=== PATIENT | male | born 1940 | race Caucasian/White ===

== ENCOUNTER 2016-12-25 04:49 | Inpatient (IN) | payer MEDICARE, BC ==
[2016-12-20 15:24] LABS: BASOPHILS 0.3 %; BASOPHILS ABSOLUTE 0.02 10/3/uL (0.0-0.16); EOSINOPHILS 1.1 %; EOSINOPHILS ABSOLUTE 0.07 10/3/uL (0.0-0.53); HEMATOCRIT 41.6 % (40.0-51.0); IMMATURE GRANULOCYTES 0.2 %; IMMATURE GRANULOCYTES ABSOLUTE 0.01 10/3/uL (0.0-0.11); LYMPHOCYTES 21.8 %; LYMPHOCYTES ABSOLUTE 1.38 10/3/uL (0.67-4.30); MEAN CORPUS HGB CONC 33.7 g/dL (32.0-36.0); MEAN CORPUSCULAR HEMOGLOB 29.2 pg (26.0-34.0); MEAN CORPUSCULAR VOLUME 86.7 fL (80-100); MEAN PLATELET VOLUME 10.7 fL (9.2-13.0); MONOCYTES 6.3 %; NEUTROPHILS 70.3 %; NEUTROPHILS ABSOLUTE 4.44 10/3/uL (2.02-8.40); PLATELET COUNT 127 10/3/uL (150-400); RBC DISTRIBUTION WIDTH 16.1 % (12.0-16.0); WHITE BLOOD CELLS 6.3 10/3/uL (4.5-10.5)
[2016-12-20 15:26] LABS: MANUAL DIFF NO %
[2016-12-20 15:31] LABS: INTERNATIONAL NORMAL RATI 1.1 UNITS (-); PROTIME (NOT ORD) 14.1 SEC (12.0-14.5)
[2016-12-20 15:41] LABS: B NATRIURETIC PEPTIDE (BNP) 475.8 PG/ML (< 100.0)
[2016-12-20 15:42] LABS: A/G RATIO 1.1 (0.7-1.9); ALBUMIN 3.6 G/DL (3.5-5.0); ALKALINE PHOSPHATASE 79 U/L (45-117); CALCIUM, SERUM 9.1 MG/DL (8.5-10.4); CHLORIDE, SERUM 108 MMOL/L (96-112); CO2 (CARBON DIOXIDE) 28 MMOL/L (24-34); CREATININE 1.24 MG/DL (0.70-1.30); GFR AFRICAN AMERICAN 64 ML/MIN (>=60); GFR NON AFRICAN AMERICAN 55 ML/MIN (>=60); GLOBULIN 3.2 G/DL (2.5-4.1); POTASSIUM, SERUM 4.6 MMOL/L (3.5-5.3); SGOT(AST) 32 U/L (5-40); SGPT(ALT) 29 U/L (5-65); SODIUM, SERUM 141 MMOL/L (135-148); TOTAL BILIRUBIN 1.6 MG/DL (0-1.2); TOTAL PROTEIN 6.8 G/DL (6.0-8.5)
[2016-12-20 15:43] LABS: BUN (BLOOD UREA NITROGEN) 32 MG/DL (6-23); GLUCOSE, SERUM 150 MG/DL (60-99)
[2016-12-20 16:01] LABS: ASCORBIC ACID (UR NOT ORDER) NEG (NEG); BILIRUBIN, URINE NEGATIVE (NEG); KETONE, URINE NEGATIVE (NEG); LEUKOCYTE ESTERASE(NOT OR NEG (NEG); WBC (NOT ORDERED) (RFLEX) < 1 (0-5)
[2016-12-20 21:29] LABS: GLYCOHEMOGLOBIN (HbA1c) 7.1 % (4.7-6.1)
--- NOTE | ~2016-12-25 | OP ---
Record Of Operation [facility] [address] [place]. [address] NAME: JHON HODGSON : 38 STATUS : ADM IN LOCATED WITHIN [facility]#: [id number] AGE: 76 ADM/REG DATE : 12/25/16 MR#: [id number] REPORT SERV DATE: 12/28/16 DICTATED BY: VELIA CROSS DATE: 12/28/16 REPORT STATUS : Draft TRANSCRIBED BY: MODL DATE: 12/28/16 DATE OF PROCEDURE: 12/28/2016 PREOPERATIVE DIAGNOSES: 1. 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 2. 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 3. Coronary artery disease. 4. Bhpld-ag-bjmmntn systolic heart failure (ejection fraction 30%). 5. Plavix-induced coagulopathy. 6. Status post recent TAVR with CoreValve (12/25/2016). 7. Diabetes mellitus. 8. Chronic kidney disease. 9. History of ventricular tachycardia status post AICD implantation. 10.Cerebrovascular disease. POSTOPERATIVE DIAGNOSES: 1. 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 2. 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 3. Coronary artery disease. 4. Nvspn-qq-tabtfdz systolic heart failure (ejection fraction 30%). 5. Plavix-induced coagulopathy. 6. Status post recent TAVR with CoreValve (12/25/2016). 7. Diabetes mellitus. 8. Chronic kidney disease. 9. History of ventricular tachycardia status post AICD implantation. 10.Cerebrovascular disease. PROCEDURE PERFORMED: 1. Urgent replacement of aortic valve using a 27 mm pericardial valve (Magna Ease). 2. Coronary artery bypass grafting x3, reverse saphenous vein graft placed to the first diagonal, reverse saphenous vein graft placed to the acute marginal, reverse saphenous vein graft placed to the posterior descending artery. 3. Extraction of prosthetic aortic valve (CoreValve). 4. Endoscopic vein harvest, saphenous vein from right thigh. 5. Transesophageal echocardiography. SURGEON: Velia Cross M.D. ASSISTANTS: Dario Rosales. ANESTHESIA: General with Dr. Juan Carlos Salinas. SIGN PAINTER APPRENTICE: Drew Daniel M.D. INDICATIONS: This is a 76-year-old gentleman, with low gradient, low EF, aortic valve stenosis, who underwent uncomplicated TAVR valve procedure on 12/25/2016 using a 29 mm Record Of Operation [place] [id number] [facility] [place]. [address] NAME: JHON HODGSON : 38 STATUS : ADM IN PAT#: [id number] AGE: 76 ADM/REG DATE : 12/25/16 MR#: [id number] REPORT SERV DATE: 12/28/16 DICTATED BY: VELIA CROSS DATE: 12/28/16 REPORT STATUS : Draft TRANSCRIBED BY: URIEL DATE: 12/28/16 CoreValve. Following implantation, the patient was doing well. Had mild increase in his creatinine. He underwent routine postoperative echo the day after procedure demonstrating possible aortic valve insufficiency that was not seen at the time of surgery. In addition, it appeared that the CoreValve itself had been migrated into the ventricular portion with impingement on the anterior leaf of the mitral valve running full opening of the mitral valve and causing effective mitral valve stenosis. The patient underwent a followup JOSIAS later that confirmed these findings and the fact the patient was found to have severe aortic valve insufficiency. His ventricular function was noted to be low with ejection fraction 30%, felt to be chronic and ischemic related. He has had previous stents placed in multiple coronary arteries. The implanting members of the TAVR team met and discussed his case and felt the patient should undergo emergent re-replacement of this prosthetic aortic valve. He was felt and I agreed that the patient should have surgical aortic valve replacement rather than attempted percutaneous repositioning of the CoreValve and/or implantation of a 2nd core valve device. The patient has a history of coronary artery disease. I reviewed the heart catheterization and felt this patient undergo bypass of the diagonal and right coronary system for previous stenosis. The patient has a stent in the LAD, which appears patent. We discussed there was nonsurgically critical coronary disease in the circumflex system. We discussed this possible operation with the patient's family and after discussing the operations, indication, risks, they wished to proceed. The patient was on Plavix postprocedure and was felt to be coagulopathic, however, continued observation and allowing the Plavix for metabolism would lengthen amount of time the patient had significant aortic insufficiency. There was concern that his ventricular function would further be compromised during this wait and it was agreed that the patient should undergo urgent aortic valve replacement surgically. FINDINGS AT OPERATION: 1. Cross-clamp 106 minutes. Total pump time 129 minutes. 2. First diagonal was 1.75 mm moderately diseased vessel. A 4 mm RSVG was anastomosed to it with good runoff. 3. Posterior descending artery was 1.5 mm and heavily diseased. A 4 mm RSVG anastomosed to it with good runoff. 4. The acute marginal branch is 1.75 mm and moderately diseased. A 4 mm RSVG was anastomosed to it with good runoff. 5. The vein quality was good. All grafts had good Doppler signal at the end of the case. 6. No DORI was utilized secondary to the patient's lack of the LAD disease at this time, and the fact that he was significantly coagulopathic. 7. The CoreValve had been displaced. This was seen on opening of the aorta and the fact the CoreValve had migrated further into the left ventricle with impingement and restricted motion of the anterior leaf of the mitral valve. Some of the cords in the mitral valve actually had some stress hemorrhagic injury secondary to the struts of the CoreValve. The valve was removed easily from the ascending aorta and left ventricle. 8. The [place] aortic valve was three leaflet with normal coronary anatomy and no root dilatation. The patient had a short left main coronary artery. The valve leaflets were heavily calcified and there was a fused right and left coronary cusp. The aortic valve was replaced using a 27 mm Magna Ease pericardial valve. Eighteen Cor-Knots were used to secure the valve in place. 9. The patient was oozy at the end of the procedure. He had been on Plavix. He was given Record Of Operation [address] [address] NAME: JHON HODGSON : 38 STATUS : ADM IN PAT#: [id number] AGE: 76 ADM/REG DATE : 12/25/16 MR#: [id number] REPORT SERV DATE: 12/28/16 DICTATED BY: VELIA CROSS DATE: 12/28/16 REPORT STATUS : Draft TRANSCRIBED BY: MODL DATE: 12/28/16 platelets, cryoprecipitate and FFP. 10.Josias at the end of the operation demonstrated continued reduced ventricular function. There was no residual mitral valve insufficiency or stenosis. Aortic prosthesis was well seated without perivalvular leak. PATHOLOGIC SPECIMENS: Include the aortic valve leaflets and the CoreValve. DESCRIPTION OF PROCEDURE: The patient was brought to the operating suite. General anesthesia was induced. The airway was secured with an endotracheal tube. Lines were secured by Anesthesia. Ascencio catheter was already in place. The patient's chest, abdomen, groin, and legs were prepped with Hibiclens and ChloraPrep and draped with Ioban sterile sheets. JOSIAS probe was placed by Dr. Juan Carlos Salinas and examination carried out as discussed above. The patient had significant restriction of the motion of the anterior leaflet of the mitral valve with the ventricular displacement of the CoreValve and severe perivalvular insufficiency. Ventricular function was reduced. The saphenous vein was harvested from the right thigh using endoscopic technique. Briefly, the vein was cut directly down upon through a 2 cm incision placed medial aspect of the right knee. Then, using VasoView trocars, the vessel was dissected from the surrounding subcutaneous tissue and fat. Side branches were identified, ligated, and divided with cautery. Once adequate length of vein had been dissected, a counter incision made up in the groin. The vein was ligated, divided, and brought through the knee incision. The vein quality was good. The leg was made hemostatic and closed in layers with absorbable suture and skin closed in subcuticular fashion. Next, a midline sternal incision was made and the sternum opened with a saw. The Addison retractor was placed and heparin administered by Anesthesia. The pericardium was opened from the innominate vein to the diaphragm, where it was T'd and tacked to the side of the chest wall. Cannulation pursestring sutures were placed and cannulation was carried out in routine manner. When all was in readiness, the patient was placed on cardiopulmonary bypass. The distal targets were marked out on the heart as described in the findings. Then, the aorta was crossclamped. Initially, an only dose of cold crystalloid cardioplegia using long term solution was administered in an antegrade fashion and directly down the coronary vessels once the aorta was opened. An LV vent was placed in through the right superior pulmonary vein and directed into the left ventricle for decompression. Because of the patient's severe aortic insufficiency, we opened the aorta earlier than usual on this initial antegrade cardioplegia dose. The CoreValve itself has been displaced in down toward or into the left ventricle. The right and left main coronary arteries were visible but were difficult to get to secondary to the CoreValve struts of the stent. Iced saline was then placed on the CoreValve metal and the valve was extracted from the aortic root. We then gave the remaining dose of long term solution down the coronary vessels directly. Following the first dose of cardioplegia, the heart support was placed. The heart was then Record Of Operation [address] [place]. [address] NAME: JHON HODGSON : 38 STATUS : ADM IN PAT#: [id number] AGE: 76 ADM/REG DATE : 12/25/16 MR#: [id number] REPORT SERV DATE: 12/28/16 DICTATED BY: VELIA CROSS DATE: 12/28/16 REPORT STATUS : Draft TRANSCRIBED BY: URIEL DATE: 12/28/16 positioned for the diagonal graft. Arteriotomy was made. The vein graft was trimmed and anastomosed to it with 7-0 Prolene. This vein graft was measured to the left side of the ascending aorta where it was divided. We then positioned the heart for the PDA graft. Arteriotomy was made. The vein graft was trimmed and anastomosed to it with 7-0 Prolene. This vein graft was then measured to the right side of the ascending aorta where it was divided. We then positioned the heart for the acute marginal graft. Arteriotomy was made. The remaining portion of vein graft was trimmed and anastomosed to it with 7-0 Prolene. This vein graft was then measured to the ascending aorta where it was divided. Then, a heart support was removed. We then turned our attention towards the aortic valve. A hockey-stick type aortotomy incision made earlier was enlarged. The aortic valve was inspected and as described in the findings, he had three leaflets that were heavily calcified. There was fusion of the right and left coronary cusp. Coronary anatomy was normal. There was no root dilatation. The aortic valve leaflets were excised and the annulus debrided of all calcific material. We then irrigated the ascending aorta and left ventricle copiously with iced saline to remove any particulate matter. Then, the valve was sized and a 27 mm pericardial valve was selected (Magna Ease). Interrupted horizontal mattress sutures of 2-0 [place] were placed circumferentially about the aortic valve annulus. Pledgets were on the ventricular side. The sutures were passed through the sewing cuff of the prosthetic valve. This was lowered into position each sutures individually secured and divided using a Cor-Knot device. A total of 18 Cor-Knots were utilized. The aortic valve prosthesis appeared to be well seated and without interference of the right or left main coronary ostia. Warming was begun. The aortotomy incision was then closed in a two-layer fashion with running pledgeted suture of 5-0 Prolene. Then three 4.5 mm punch aortotomies were made. The proximal end of each vein grafts was anastomosed to an aortotomy with a running suture of 6-0 Prolene. The patient was placed in Trendelenburg and ascending aorta and left ventricle de-aired. Then, the aortic cross-clamp was removed. Flows were resumed on the pump. The heart was allowed to rest on cardiopulmonary bypass. A paced rhythm did occur. When the heart demonstrated good contractility, it was allowed to fill and eject. Inotropic agents were begun by Anesthesia. Ventilations were begun and deairing was monitored with JOSIAS. When deairing was completed, the LV vent was removed and these pursestring sutures tied. The ascending aortic vent was likewise removed and these pursestring sutures tied and reinforced. The patient was weaned from cardiopulmonary bypass with inotropic support. The venous cannulas were removed and these pursestring sutures tied. JOSIAS examination demonstrated continued reduced ventricular function with some improvement. The aortic valve prosthesis was well seated without perivalvular leak. There was no mitral insufficiency, and there was good opening of the anterior leaflet of the mitral valve postoperatively. Protamine was administered by Anesthesia and following a period of hemodynamic stability, the aortic cannula was removed and these pursestring sutures tied and reinforced. Record Of Operation [facility] [address] [facility] [place]. [address] NAME: JHON HODGSON : 38 STATUS : ADM IN PAT#: [id number] AGE: 76 ADM/REG DATE : 12/25/16 MR#: [id number] REPORT SERV DATE: 12/28/16 DICTATED BY: VELIA CROSS DATE: 12/28/16 REPORT STATUS : Draft TRANSCRIBED BY: MODL DATE: 12/28/16 The patient continued do well and chest irrigated copiously with saline. Meticulous hemostasis was obtained. The patient was coagulopathic and oozing, and FFP, platelets, and cryoprecipitate were ordered from the blood bank. As hemostasis was assured, the pericardium was draped over the anterior surface of the heart and tacked into position. Doppler demonstrated good flow through the grafts following protamine administration. Then, chest tubes were placed in the sternum and reapproximated with eight sternal wires. The clavipectoral fascia was closed with #1 Stratafix. The subcutaneous tissue was closed and skin was closed in subcuticular fashion. The patient tolerated the procedure well. There were no complications. Sponge and needle counts were correct. DISPOSITION: The patient left intubated, sedated, and transported to the intensive care unit in a stable condition. NICK/URIEL Velia Cross M.D. / [id number] CC: Lauren Fernando M.D. Brian Negus, M.D.
--- NOTE | ~2016-12-25 | CN ---
Consultation Report [facility] [address] [place]. [address] NAME: JHON HODGSON : 38 STATUS : ADM IN PAT#: [id number] AGE: 76 ADM/REG DATE : 12/25/16 MR#: [id number] REPORT SERV DATE: 12/29/16 DICTATED BY: VELIA ROWLEY DATE: 12/29/16 REPORT STATUS : Draft TRANSCRIBED BY: MODL DATE: 12/29/16 CONSULTATION DATE OF CONSULTATION: REASON FOR CONSULTATION: Diabetes management. PHYSICIAN REQUESTING CONSULTATION: Dr. Cross. HISTORY OF PRESENT ILLNESS: Mr. Hodgson is a 76-year-old gentleman with a history of very labile insulin-dependent diabetes mellitus type 2 with recent hemoglobin A1c of 7.8. The patient is postop day #4 from transcatheter aortic valve replacement that was unfortunately complicated by valve replacement malposition with acute aortic insufficiency and acute mitral stenosis requiring bioprosthetic aortic valve replacement as well as coronary artery bypass grafting on 12/28/2016. The patient has been extubated for approximately 24 hours. He is now currently eating at least 50% of his meals of last three meals, so the Hospitalist Service has now been consulted for assistance with weaning the patient from his insulin drip. The patient states that he has not seen an campground hand, but he is scheduled to see one later this month at [facility], name unknown. His last hemoglobin A1c was approximately 7.8. The patient is on a very unusual insulin regimen at home. The patient states that he typically takes about 50 units of Novolin N in the morning if his sugars greater than 150. If it is less than 150, he will then adjust that dose by himself but does not have a set scale or correction amount. The patient also will give himself 1-2 units of Novolin R if his sugars in the morning check are very high such as greater than 250 or 300. The patient also will check his sugar at lunch time, and if greater than 150, and if he anticipates a high carb intake for lunch, he will be given something in between 0 to 2 units of Novolin R. The patient also will check his sugars at dinner, and again based on blood sugar check as well as his carb intake, may give himself between 0 to 2 units of Novolin R. The patient then checks his blood sugar at night, and if less than 200, he will need to take an additional carbs at night to prevent him from going hypoglycemic late at night. If his sugars are greater than 200 at night, he does not take any additional carbs but never at any time does he give himself additional insulin as he has frequent episodes of hypoglycemia late at night or early in the morning. The patient states he was recently on metformin but discontinued about three weeks ago for persistently low blood sugars. The patient reports that he has been trialed on multiple regimens and types of insulin without significant improvement in his labile blood sugars. Hence, Endocrinology referral. The patient does have a history of temporal arteritis and has been on chronic prednisone therapy, and of note, his sewer and drain technician recently decreased from 5 mg per day to 2.5 mg a day about one month ago. Hemoglobin A1c was checked here in the ICU and is currently 6.8. The patient is currently on insulin drip at 6 units/hour. He has consumed approximately 24 units in the last six hours as well as about 34 units in the last 8 hours. He states he is Consultation Report [address] [address] NAME: JHON HODGSON : 38 STATUS : ADM IN [facility]#: [id number] AGE: 76 ADM/REG DATE : 12/25/16 MR#: [id number] REPORT SERV DATE: 12/29/16 DICTATED BY: VELIA ROWLEY DATE: 12/29/16 REPORT STATUS : Draft TRANSCRIBED BY: URIEL DATE: 12/29/16 eating about 50% of his meals over the last day. Denies any abdominal pain, nausea, vomiting that prevent from eating meals in the future. Of note, he has had some episodes of low blood sugar of 67 a few hours ago as well as an episode of closure of 47 while on the insulin drip yesterday. REVIEW OF SYSTEMS: Comprehensive system otherwise negative unless listed in history of present illness. PREVIOUS MEDICAL HISTORY: 1. Coronary artery disease, status post PCI and recent coronary artery bypass grafting. 2. Aortic stenosis, status post transcatheter aortic valve replacement that had to be converted to a bioprosthetic aortic valve replacement. 3. Insulin-dependent diabetes mellitus type 2. Hemoglobin A1c of 6.8. 4. Hypertension. 5. Hyperlipidemia. 6. Chronic systolic congestive heart failure. Ejection fraction of 30%. 7. Carotid arterial disease. 8. CKD 2. 9. BPH. 10.Restless legs syndrome. 11.Temporal arteritis, on chronic prednisone therapy. 12.Obstructive sleep apnea. 13.Status post pacemaker ICD insertion. SURGICAL HISTORY: 1. TURP. 2. CABG. 3. Transcatheter aortic valve replacement, 12/25/2016. 4. Bioprosthetic aortic valve replacement for TAVR malposition on 12/28/2016. 5. Coronary artery bypass grafting, 12/28/2016. 6. Pacemaker ICD insertion. 7. Hernia repair. 8. Appendectomy. 9. Cataract surgery. ALLERGIES: ARE TO PHENERGAN. HOME MEDICATIONS: The patient is currently on prednisone 2.5 mg daily as well as NPH 50 units daily as well as a carbohydrate control insulin scale. SOCIAL HISTORY: He is a former smoker. Denies alcohol or illicits. FAMILY MEDICAL HISTORY: Mother of old age in her upper 90s. Father with coronary artery disease. Siblings with diabetes. Consultation Report [address] [address] NAME: JHON HODGSON : 38 STATUS : ADM IN [facility]#: [id number] AGE: 76 ADM/REG DATE : 12/25/16 MR#: [id number] REPORT SERV DATE: 12/29/16 DICTATED BY: VELIA ROWLEY DATE: 12/29/16 REPORT STATUS : Draft TRANSCRIBED BY: URIEL DATE: 12/29/16 LABS AND IMAGIN. Review of the patient's most recent blood sugars are 136 and then 99, then 67, then 133, then 201. Currently on a 6 unit/hour insulin drip. 2. CBC: White count 7.8, hemoglobin is 8.9, hematocrit is 25.6, and platelet count is 114. 3. Sodium is 143, potassium 4.4, chloride 111, carbon dioxide 24, BUN 29, creatinine 1.1, and glucose is 102. PHYSICAL EXAMINATION: VITAL SIGNS: Temperature is 99.2 degrees Fahrenheit, pulse is 93, respirations 23, saturating 94% on 2 L nasal cannula, and blood pressure 130/65. GENERAL: The patient is awake, alert, in no acute distress. Resting comfortably in bed. He is a well-developed, well-nourished, elderly male. HEENT: Atraumatic and normocephalic. Moist mucous membranes. Pupils are equal, round, reactive to light and accommodation. Extraocular eye movements intact. No scleral icterus. NECK: No jugular venous distention. No carotid bruits. CARDIAC: Regular rate and rhythm. No appreciable murmurs, rubs, or gallops. Status post sternotomy with appropriate bandaging. LUNGS: Clear to auscultation bilaterally except for decreased breath sounds, left greater than right bases. ABDOMEN: Soft, nontender, nondistended. Good bowel sounds. ASSESSMENT: Mr. Hodgson is a 76-year-old gentleman with history of labile insulin-dependent diabetes mellitus type 2 who is postop day #1 from coronary artery bypass grafting as well as revision of his previous transcatheter aortic valve replacement with a bioprosthetic AVR who is currently on an insulin drip. PROBLEM LIST: Labile insulin-dependent diabetes mellitus type 2. PLAN: Given the patient's very labile diabetes at home as well as here on insulin drip, we are very concerned with my initial management in order to get the patient off insulin drip. He has consumed 24 units of insulin in the past six hours which would be quite about 100 units for the full 24 hours. However, again, given his labile blood sugars, I am going to initially place him on Levemir 15 units x1, wait an hour befor shutting off insulin drip. We will place him on level 1 insulin sliding scale and adjust as needed, and again, continue the Levemir insulin 15 units per day beginning in the morning, and we will up titrate as necessary. We will ask Nursing to contact us should patient become hyperglycemic as again I am choosing a very conservative approach in an effort to try to minimize the risks of hypoglycemia. Thank you for this consultation. We will continue to follow along with you. JCB/MODL Consultation Report [facility] [address] [place]. [address] NAME: JHON HODGSON : 38 STATUS : ADM IN [facility]#: [id number] AGE: 76 ADM/REG DATE : 12/25/16 MR#: [id number] REPORT SERV DATE: 12/29/16 DICTATED BY: VELIA ROWLEY DATE: 12/29/16 REPORT STATUS : Draft TRANSCRIBED BY: URIEL DATE: 12/29/16 Velia Rowley MD / [id number] CC: Lauren Fernando M.D.
--- NOTE | ~2016-12-25 | TEE ---
Transesophageal Echocardiogram [facility] [address] [place]. [address] NAME: JHON HODGSON : 38 STATUS : ADM IN PAT#: [id number] AGE: 76 ADM/REG DATE : 12/25/16 MR#: [id number] REPORT SERV DATE: 12/27/16 DICTATED BY: GALLO MITCHELL DATE: 12/27/16 REPORT STATUS : Draft TRANSCRIBED BY: MODL DATE: 12/27/16 PROCEDURE INDICATION: Aortic valve assessment. PROCEDURE TYPE: Elective transesophageal echocardiogram. DESCRIPTION: All questions were answered, and informed consent was obtained. Anesthesia administered sedation. Upon successful sedation, the transesophageal probe was inserted without complication. Salient echocardiographic windows were obtained, with particular attention to the prosthetic transcatheter aortic valve. The findings are detailed below. Upon completion of the study, the transesophageal probe was withdrawn without complication. The patient was recovered by Anesthesia. I updated the family personally. ECHOCARDIOGRAPHIC FINDINGS: 1. Moderately decreased left ventricular systolic function with an estimated ejection fraction of 35%. 2. Normal right ventricular size and systolic function. 3. Medtronic transcatheter CoreValve noted within the left ventricular outflow tract with a significant restriction of the anterior mitral leaflet systolic excursion due to Medtronic anterior struts within the LVOT. With 3D, color Doppler and spectral Doppler assessment, moderate functional mitral stenosis is suggested (mean gradient equals 6 mmHg). In addition, there appears to be severe perivalvular aortic regurgitation, predominantly medial and lateral in location. There is evidence of aortic diastolic flow reversal as well on color and spectral Doppler assessment in keeping with severe aortic regurgitation. Finally, measured pressure half-time with regard to the aortic regurgitation is 190 milliseconds, also in keeping with severe AR. 4. The transcatheter prosthetic aortic valve itself, however, appears to be functioning well with normal excursion of the prosthetic leaflets and no valvular regurgitation seen on color Doppler assessment. VR/MODL Gallo Mitchell MD / [id number] CC: Lauren Fernando M.D.
--- NOTE | ~2016-12-25 | CN ---
Consultation Report [facility] [address] [place]. [address] NAME: JHON HODGSON : 38 STATUS : ADM IN [facility]#: [id number] AGE: 76 ADM/REG DATE : 12/25/16 MR#: [id number] REPORT SERV DATE: 12/27/16 DICTATED BY: ALFRED PETERSEN DATE: 12/27/16 REPORT STATUS : Draft TRANSCRIBED BY: MODL DATE: 12/27/16 CONSULTATION NOTE DATE OF CONSULTATION: 12/27/2016 REQUESTING PHYSICIAN: Dr. Daniel. CONSULTING GROUP: [facility]. CHIEF COMPLAINT: Status post transcatheter aortic valve implantation postop day 2, bump in creatinine. HISTORY OF PRESENT ILLNESS: Mr. Hodgson is a 76-year-old gentleman with past medical history significant for coronary artery disease, AICD placement, carotid disease, diabetes, hypertension, transurethral prostatectomy 20 years ago, who was admitted for transcatheter aortic valve implantation by Dr. Daniel and Dr. Cross. According to chart and his outpatient records, he had a fixed severe low gradient aortic stenosis. His LV ejection fraction was 30%. The procedure was performed on 12/25/2016 and status post procedure he started having new symptoms of aortic regurgitation. He was having shortness of breath, so his discharge was held and he was not placed on any IV fluids or IV drips. He did require Lasix 40 mg IV q.8 hours x2, and an echocardiogram transesophageal has been scheduled for 3 p.m. today. He is a pleasant patient, good historian, in no acute distress at this time. He is n.p.o. for his transesophageal echocardiogram. His primary care physician is Dr. Zamzam Corey. PAST MEDICAL HISTORY: Carotid artery disease; CKD stage II, not seen by ornamenter; diabetes; hypertension; hyperlipidemia; transcatheter aortic valve implantation postop day 2; he has acute on chronic systolic heart failure and coronary artery disease. He also has a history of restless legs syndrome and prostate disease requiring transurethral prostatectomy 20 years ago. FAMILY HISTORY: Noncontributory. SOCIAL HISTORY: He is a 30-pack smoker. No alcohol or drug use. Lives with in [facility]. 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 REVIEW OF SYSTEMS: Positive for shortness of breath, prostate issues, and fatigue. All other review of systems negative at this time. PHYSICAL EXAMINATION: VITAL SIGNS: Temperature 98.5, pulse 79, blood pressure 120/60. Weight 73.2 kg. Intake 940, output 2850. 96% O2 saturation on room air. GENERAL: He looks younger than stated age, in no acute distress. Consultation Report [facility] [address] [place]. [address] NAME: JHON HODGSON : 38 STATUS : ADM IN [facility]#: [id number] AGE: 76 ADM/REG DATE : 12/25/16 MR#: [id number] REPORT SERV DATE: 12/27/16 DICTATED BY: ALFRED PETERSEN DATE: 12/27/16 REPORT STATUS : Draft TRANSCRIBED BY: URIEL DATE: 12/27/16 EYES: Extraocular movements are intact. No conjunctivitis. ENT: Dry oropharynx. No facial droop. LYMPH: No supraclavicular or cervical lymphadenopathy. SKIN: No rash or lesions. HEART: S1, S2 regular. No faint murmur. No edema. LUNGS: Clear to auscultation anteriorly. No crackles. No tachypnea. ABDOMEN: Soft, thin. Decreased bowel sounds. EXTREMITIES AND PSYCH: Alert and oriented x3. Normal mood and affect. LABS: Chest x-ray shows status post transcatheter aortic valve implantation, interstitial edema, and small left pleural effusion. ABG performed recently pH of 7.54, pCO2 of 28, PO2 of 77, bicarbonate 23.4, 95.8% O2 saturation on FiO2 room air. Sodium 139, potassium 4.2, chloride 103, bicarbonate 27, BUN 31, creatinine 1.43, and glucose 197. Calcium 8.9, magnesium 2.0. His creatinine has bumped from 0.92 to 1.0 to 1.43. White count 9.7, hemoglobin 13.8, hematocrit 40.3, and platelets 98. ASSESSMENT AND PLAN: Mr. Hodgson is a 76-year-old gentleman with severe aortic stenosis, coronary artery disease, diabetes, hypertension, carotid disease, chronic kidney disease stage II to stage III, postop day 2 transcatheter aortic valve implantation with adverse reaction of migration of the new valve. Renal. Creatinine has gone up from 0.9 to 1.0 to 1.43. PLAN: 1. He did respond to Lasix x2 doses yesterday, but the bump in creatinine has been noted. His urine output was 2850 mL. 2. He is scheduled for transesophageal echocardiogram today at 3 p.m. to assess migration of this new valve. 3. Encouraged p.o. once MIRIAM is completed. He has good urine output. 4. The patient is slated to go home, if the MIRIAM and his symptomatology are stable. 5. I spoke with SLOT TECHNICIAN to call me with any new concerns such as oliguria or worsening shortness of breath. I have ordered spot urine test tonight if he stays overnight. RG/MODL Alfred Petersen M.D. / [id number] CC: Lauren Fernando M.D.
--- NOTE | ~2016-12-25 | OP ---
Record Of Operation [facility] [address] [place]. [address] NAME: JHON HODGSON : 38 STATUS : ADM IN PAT#: [id number] AGE: 76 ADM/REG DATE : 12/25/16 MR#: [id number] REPORT SERV DATE: 12/25/16 DICTATED BY: EZEQUIEL FOLEY DATE: 12/25/16 REPORT STATUS : Draft TRANSCRIBED BY: MODL DATE: 12/25/16 DATE OF PROCEDURE: 12/25/2016 REFERRING DREDGING INSPECTOR: Francisco Diaz M.D. PROCEDURE PERFORMED: 1. Transcatheter aortic valve implantation using a Medtronic 34 mm Evolut R valve from a right transfemoral approach. 2. Temporary transvenous pacemaker placement, right IJ to right ventricle. 3. Ascending aortogram. 4. Iliac angiogram. 5. ProGlide closure x2, right femoral artery successful. 6. ProGlide closure x1, left femoral artery successful. COVER MARKER: Dario Rosales. ECHOCARDIOGRAPHY: Mich Martinez M.D., Ph.D, F.A.C.C. ANESTHESIA: MAC and local. SPECIMEN REMOVED: None. FLUOROSCOPY TIME: 22.1 minutes, mGy 446. ESTIMATED BLOOD LOSS: Less than 50 mL. CONTRAST: 60 mL, nonionic. COMPLICATIONS: None. PREOPERATIVE DIAGNOSES: 1. Severe low-gradient aortic stenosis by dobutamine echocardiography with fixed severe aortic stenosis with aortic valve area of 0.9 sq cm. Peak gradient of 17, mean gradient of 16 mmHg. 2. Acute on chronic systolic congestive heart failure. 3. Left ventricular ejection fraction of 30% by echocardiography. 4. Increased surgical risk with STS score of 6.7% mortality and 29.8% morbidity and mortality. He was seen by two cardiac surgeons, Dr. Perla and Dr. Cross, who felt that he was at high surgical risk. 5. Status post ICD placement for ventricular tachycardia. 6. Coronary artery disease, status post percutaneous intervention. 7. Carotid artery disease grade 2 bilaterally, asymptomatic. 8. Chronic kidney disease, stage 3. 9. Diabetes mellitus. 10.Hypertension. 11.Elevated cholesterol. Record Of Operation [facility] [address] [place]. [address] NAME: JHON HODGSON : 38 STATUS : ADM IN PAT#: [id number] AGE: 76 ADM/REG DATE : 12/25/16 MR#: [id number] REPORT SERV DATE: 12/25/16 DICTATED BY: EZEQUIEL FOLEY DATE: 12/25/16 REPORT STATUS : Draft TRANSCRIBED BY: UREIL DATE: 12/25/16 12.Former tobacco. 13.Temporal arteritis, on high-dose steroid therapy. POSTOPERATIVE DIAGNOSES: 1. Severe low-gradient aortic stenosis by dobutamine echocardiography with fixed severe aortic stenosis with aortic valve area of 0.9 sq cm. Peak gradient of 17, mean gradient of 16 mmHg. 2. Acute on chronic systolic congestive heart failure. 3. Left ventricular ejection fraction of 30% by echocardiography. 4. Increased surgical risk with STS score of 6.7% mortality and 29.8% morbidity and mortality. He was seen by two cardiac surgeons, Dr. Perla and Dr. Cross, who felt that he was at high surgical risk. 5. Status post ICD placement for ventricular tachycardia. 6. Coronary artery disease, status post percutaneous intervention. 7. Carotid artery disease grade 2 bilaterally, asymptomatic. 8. Chronic kidney disease, stage 3. 9. Diabetes mellitus. 10.Hypertension. 11.Elevated cholesterol. 12.Former tobacco. 13.Temporal arteritis, on high-dose steroid therapy. 14.Only mild perivalvular aortic insufficiency postoperatively with a transthoracic echo. DATA FOR THE STS/ACC REGISTRY: Time of valve deployment 0905 hours. Preprocedure: Mean gradient of 17, peak gradient of 18. Cardiac output of 4.2 L/minute for an aortic valve area of 0.9 sq cm. Postprocedure: Mean gradient of 0, peak gradient of 0, cardiac output of 5.4 L/minute. Aortic valve area was not calculated due to lack of gradient. AI index of 36. INDICATION FOR PROCEDURE: Mr. Hodgson is a very pleasant 76-year-old white man with severe low-gradient aortic stenosis. He has been undergoing evaluation in the [facility] and had dobutamine echocardiography revealing fixed severe low-gradient aortic stenosis. He has comorbidities including acute on chronic systolic congestive heart failure with LVEF of 30%. VT status post ICD placement, coronary artery disease status post percutaneous intervention. His STS score was 6.7% mortality and 29.8% morbidity and mortality. He was seen by two cardiac surgeons, Dr. Cross and Dr. Perla, who felt that he was at high open surgical risk. He was offered transcatheter aortic valve implantation. After discussion of the risks, benefits, complications, and his alternatives including medical therapy and open aortic valve replacement, Mr. Hodgson wished to proceed with transcatheter aortic valve implantation, and informed written consent was signed. TECHNIQUE: After informed written consent, Mr. Hodgson was brought to the hybrid suite on the morning of 12/25/2016 in the fasting state. The time-out was performed and correct patient and operative plan were confirmed. MAC and local anesthesia was provided by the Anesthesia Service. There was an introducer already in the IJ provided by Anesthesia with a temporary transvenous pacemaker in the sheaths. This was advanced under fluoroscopic guidance to the RV position. Threshold was checked, which was less than 0.8 milliamps. This was then set Record Of Operation [address] [address] NAME: JHON HODGSON : 38 STATUS : ADM IN [facility]#: [id number] AGE: 76 ADM/REG DATE : 12/25/16 MR#: [id number] REPORT SERV DATE: 12/25/16 DICTATED BY: EZEQUIEL FOLEY DATE: 12/25/16 REPORT STATUS : Draft TRANSCRIBED BY: URIEL DATE: 12/25/16 aside. Next, local anesthesia in both groins was accomplished using 1% lidocaine. Using a modified Seldinger technique and a micropuncture set, a micro sheath was placed in the right and left femoral arteries and femoral angiograms were performed, which demonstrated good sticks in the common femoral artery, thought suitable for closure. The sheath was then exchanged for 6-Czech sheath, which double flushed and left in place. Next, a 5-Czech pigtail catheter was advanced over a flexible J-guidewire to the central aorta under fluoroscopic guidance. Guidewire was then withdrawn, catheter double flushed, pressure recording was obtained, angles were obtained, and angiography was performed, which was stored. Next, the ProGlide closures were placed in the right femoral artery at 10 o'clock and 2 o'clock in the usual fashion. The sheath was exchanged for a 16-Czech Cook sheath, which was double flushed and left in place. Next, a 6-Czech AL1 diagnostic catheter was advanced to the ascending aorta under fluoroscopic guidance. The patient was heparinized to an ACT of greater than 250. Using a straight guidewire, the aortic valve was crossed. The catheter was then advanced to the LV position using an exchange J-guidewire. The catheter was exchanged for a pigtail catheter and simultaneous LV and aortic pressures were then obtained. Cardiac output was performed. The Lunderquist double-curve wire was then placed in the LV and the catheter was withdrawn. Next, the Medtronic valve Evolut R absolute are 34 mm was brought to the table and cineangiography was performed, which demonstrated good paddle position and the valve was prepped and readied for implantation. Next, the sheath was withdrawn and the Medtronic valve with the in-line sheath was advanced through the right femoral artery. The valve was then advanced around the aortic arch in the HUNGARIAN projection and then brought to the ascending aorta. Valve angles were then obtained. The valve then crossed the aortic valve and position was confirmed angiographically. The angles were adjusted to get rid of the parallax and valve deployment was commenced in the usual fashion. Pacing was performed at a rate of 110 beats per minute during deployment. The valve needed to be recaptured on one occasion and the second deployment went well with good implantation depth estimated at 3-4 mm. The valve was functioning well. The patient remained hemodynamically stable. The valve was then released and followup angiography confirmed no significant aortic insufficiency. Transthoracic echocardiogram was performed by Dr. Martinez, which revealed only mild perivalvular aortic insufficiency. Valve gradient was checked using a pullback technique and there was no significant gradient during pullback. This was felt to be an acceptable result. The valve deployment balloon and sheath were then withdrawn from the body. The ProGlide closures were tied with good hemostasis. There were no bleeding and no hematoma. Iliac angiogram was obtained, which demonstrated widely patent iliac arteries bilaterally with no evidence of dissection or distal embolization and no evidence of extravasation or stenosis at the access site. Next, the left femoral artery sheath was removed and ProGlide closure was performed with good hemostasis. There was no bleeding and no hematoma in either leg. The pacing catheter from the right IJ and the [place] catheter were removed at the conclusion of the procedure. He tolerated the procedure well without apparent complication. He was then returned to his room in good condition for access management. Recommendations were for aspirin 81 mg p.o. daily and Plavix 75 mg p.o. daily for at least six months and aspirin indefinitely as well as echocardiographic followup. Record Of Operation [facility] [address] [place]. [address] NAME: JHON HODGSON : 38 STATUS : ADM IN PAT#: [id number] AGE: 76 ADM/REG DATE : 12/25/16 MR#: [id number] REPORT SERV DATE: 12/25/16 DICTATED BY: EZEQUIEL FOLEY DATE: 12/25/16 REPORT STATUS : Draft TRANSCRIBED BY: URIEL DATE: 12/25/16 BN/URIEL Ezequiel Foley M.D. / [id number] CC: Lauren Fernando M.D. Gregory Keith Bruce, M.D.
--- NOTE | ~2016-12-25 | DS ---
Discharge Summary [facility] [address] [place]. [address] NAME: JHON HODGSON : 38 STATUS : DIS IN PAT#: [id number] AGE: 77 ADM/REG DATE : 12/25/16 MR#: [id number] REPORT SERV DATE: 01/16/17 DICTATED BY: VELIA CROSS DATE: 01/15/17 REPORT STATUS : Draft TRANSCRIBED BY: URIEL DATE: 01/15/17 Data Collection from hospitalization DISCHARGE DIAGNOSES: 1. Aortic stenosis. 2. Coronary artery disease. 3. Hypertension. 4. Diabetes. 5. Ischemic cardiomyopathy. 6. Dyslipidemia. 7. History of tobacco use. 8. Gastroesophageal reflux disease. 9. Mitral regurgitation. 10.History of nonsustained ventricular tachycardia with history of permanent pacemaker. 11.Temporal arteritis. CONSULTATIONS: 1. Alfred Petersen M.D. 2. Velia Lenz M.D. 3. Drew Daniel M.D. PROCEDURES PERFORMED: 1. Transcatheter aortic valve replacement, right transfemoral with 34 Evolut PRO Medtronic valve, ProGlide closure of right femoral artery x2, ascending aortography, right iliofemoral runoff aortography, transthoracic echocardiography, 12/25/2016. 2. Urgent replacement of aortic valve using a 27 mm pericardial valve (Magna Ease), coronary artery bypass grafting x3 with reverse saphenous vein graft placed to the first diagonal, reverse saphenous vein graft placed to the acute marginal, reverse saphenous vein graft placed to the posterior descending artery, extraction of prosthetic aortic valve (CoreValve), endoscopic vein harvest of the saphenous vein from the right thigh, transesophageal echocardiography, 12/28/2016. PATHOLOGY: Heart valve, explanted CoreValve - see gross description. Heart valve, aortic valve leaflets excision - nodular calcification with patchy acute endocarditis. MEDICATIONS: Norvasc 5 mg daily, artificial tears one drop four times a day as needed, Halfprin 81 mg daily, Lipitor 40 mg daily, Super B-complex one tablet every evening, Caltrate 600 mg every evening, Coreg 3.125 mg twice a day, vitamin D3 at 2000 units every evening, Klonopin 0.125 mg every day at bedtime, folic acid 1 mg daily, Lasix 10 mg daily and as needed, NovoLog injection insulin as instructed, Novolin N 20 units subcutaneously every morning, Prinivil 2.5 mg daily, Ativan 1 mg at bedtime, Glucophage 500 mg with breakfast, Nitrostat 0.4 mg sublingually as needed, Prilosec 20 mg as needed, Roxicodone 5- 10 mg every six hours as needed, K-DUR 20 mEq daily, Deltasone 2.5 mg daily, Metamucil one packet daily, Flomax 0.4 mg at bedtime, Ultram 50 mg every six hours as needed, Coumadin 3 mg every evening. He was instructed not to continue Plavix. CONDITION AT DISCHARGE: Stable. Discharge Summary [facility] [id number] [place]. [address] NAME: JHON HODGSON : 38 STATUS : DIS IN PAT#: [id number] AGE: 77 ADM/REG DATE : 12/25/16 MR#: [id number] REPORT SERV DATE: 01/16/17 DICTATED BY: VELIA CROSS DATE: 01/15/17 REPORT STATUS : Draft TRANSCRIBED BY: URIEL DATE: 01/15/17 DISPOSITION: The patient was discharged home on a low-cholesterol, low-sodium, 1800-calorie diabetic diet with activities as instructed. He would follow up with Chavo Woodard, 02/20/2017; he would follow up with Dr. Francisco Diaz, 03/25/2017; he would follow up with Chirag Lund, 01/28/2017; he would follow up at the [facility], Friday following discharge and would follow up at the Valve Clinic at the [facility], 01/23/2017. HOSPITAL COURSE: This is a 77-year-old man who has a low gradient severe aortic stenosis with a calculated aortic valve area of 0.89 with a mean gradient of 18, who previously had an LAD stent and had mild pulmonary hypertension. He had a dobutamine echo, which showed that there was severe low gradient aortic stenosis, which was fixed, and after dobutamine infusion, there was a greater than 20% increase in LVOT. VTI indicating adequate contractile reserve. The patient was seen in the multidisciplinary clinic. Treatment options were discussed, and it was elected to proceed with surgical intervention. He was admitted to the hospital at this time for further evaluation and treatment. Upon admission, the patient was taken to the operating room where he underwent the above- mentioned procedures by myself as well as Dr. Matt Briseno, Dr. Drew Daniel, and Dr. Jose Daniel Perla. He tolerated this well, and there were no complications. The following day, an echocardiogram was performed. Blood pressure was controlled. He was on a statin agent. Creatinine level was stable at baseline. He was seen by Dr. Drew Daniel. He was feeling fine, had no chest pain, shortness of breath, or palpitations. He was in a paced rhythm. Coreg was going to begin. On 12/27/2016, he had some shortness of breath. He was off O2. His O2 saturation was 98%. ABGs were going to be checked on room air. He has moderate aortic insufficiency by echo. He was tolerating Coreg well. He was seen by Dr. Alfred Petersen, with creatinine level had increased. The patient has severe aortic stenosis, coronary artery disease, diabetes, hypertension, carotid disease, chronic kidney disease stage II to III. He had an adverse reaction to migration of the new valve. He did respond to two doses of Lasix, but his creatinine had increased and was now 1.43. Transesophageal echocardiogram was going to be performed to assess migration of a new valve. We would encourage oral intake once transesophageal echocardiogram was completed. He had good urine output. The patient has moderate left ventricular dysfunction with ejection fraction of 35%. There was normal right ventricular systolic function. The transesophageal echocardiogram was reviewed. He does have severe aortic insufficiency as well as mitral stenosis. It was felt that he should undergo further surgical intervention. On 12/28/2016, he was taken to the operating room where he underwent the above-mentioned procedure. He tolerated this well, and there were no complications. On 12/29/2016, he was up, sitting in a chair. Creatinine level was 1.11. He was on an insulin drip. Chest x-ray showed increased vascular congestion. He was given a dose of IV Bumex. He did appear swollen. He was seen by Dr. Velia Lenz regarding diabetes management. The patient has a history of very labile insulin-dependent type 2 diabetes mellitus with recent hemoglobin A1c of 7.8. He was now eating at least 50% of his meals. He said that he had not seen an dock manager, but was scheduled to see one later this month at [place]. His last hemoglobin A1c was approximately 7.8. The patient was on a very unusual insulin regimen at home. His hemoglobin A1c was checked and was now 6.8. He was currently on an insulin drip. There was concern about initial management in order to Discharge Summary [facility] [address] [place]. [address] NAME: JHON HODGSON : 38 STATUS : DIS IN PAT#: [id number] AGE: 77 ADM/REG DATE : 12/25/16 MR#: [id number] REPORT SERV DATE: 01/16/17 DICTATED BY: VELIA CROSS DATE: 01/15/17 REPORT STATUS : Draft TRANSCRIBED BY: MODShay DATE: 01/15/17 get the patient off the insulin drip. He was going to be placed on a dose of Levemir, and we would wait an hour before shutting off the insulin drip. He was going to be placed on level 1 sliding scale insulin, and we would adjust this as needed. Levemir would be continued, and we would titrate this as necessary. On 12/30/2016, he was up, sitting in a chair. He did have some chest soreness. We encouraged him to increase his activity. He was being weaned off the dobutamine. Cardene was stopped. Levemir was increased. He was alert and conversant. Creatinine level had improved, it was now 1.06. The next day, he was fatigued, but otherwise, had no focal complaints. Oral blood pressure medications were continued. His blood pressure was well controlled. He has mild crackles in his lung bases. He was passing some gas. We encouraged him to ambulate and use incentive spirometry. Lasix was increased. MiraLax was given as well as a Dulcolax suppository. Metoprolol was changed to Coreg. We would try low-dose lisinopril. Warfarin was continued. He was evaluated by Occupational and Physical Therapy. On 01/02/2017, he had no focal complaints. He had decreased breath sounds in his lung bases, left greater than right. We encouraged him to mobilize. Chest x-ray showed small bilateral pleural effusions. The next day, discharge planning was performed. He was doing well. He was ambulating more. INR level was 1.9. Discharge planning was performed. Warfarin was continued. O2 was being weaned. On 01/04/2017, he had no chest pain or shortness of breath. INR level was 2.1. His incisions looked okay. Discharge instructions were given. Due to his improved and stable condition, he was discharged home with the above stated instructions. Information collected by: Nanci Kim I submit the above information as my discharge summary. ERIC/URIEL Velia Cross M.D. / [id number] CC: Lauren Fernando M.D. Brian Negus, M.D. Rohit Gupta, M.D.
--- NOTE | ~2016-12-25 | OP ---
Record Of Operation [address] [place]. [address] NAME: JHON HODGSON : 38 STATUS : ADM IN PAT#: [id number] AGE: 76 ADM/REG DATE : 12/25/16 MR#: [id number] REPORT SERV DATE: 12/25/16 DICTATED BY: JOSE DANIEL LAYTON DATE: 12/25/16 REPORT STATUS : Draft TRANSCRIBED BY: MODShay DATE: 12/25/16 DATE OF PROCEDURE: 12/25/2016 PREOPERATIVE DIAGNOSES: 1. Low-gradient severe aortic stenosis. 2. Chronic systolic heart failure, ejection fraction approximately 30%. 3. Coronary artery disease, status post LAD stent. 4. Hypertension. 5. Hyperlipidemia. 6. Insulin-dependent diabetes mellitus. 7. Hiatal hernia. 8. Chronic kidney disease, stage 2. POSTOPERATIVE DIAGNOSES: 1. Low-gradient severe aortic stenosis. 2. Chronic systolic heart failure, ejection fraction approximately 30%. 3. Coronary artery disease, status post LAD stent. 4. Hypertension. 5. Hyperlipidemia. 6. Insulin-dependent diabetes mellitus. 7. Hiatal hernia. 8. Chronic kidney disease, stage 2. OPERATIONS/PROCEDURES PERFORMED: 1. Transcatheter aortic valve replacement, right transfemoral with 34 Evolut PRO Medtronic valve. 2. ProGlide closure of the right femoral artery x2. 3. Ascending aortography. 4. Right iliofemoral runoff aortography. 5. Transthoracic echocardiography. SURGEON: Dr. Jose Daniel Layton, Dr. Quinn Cross, Dr. Matt Briseno, and Dr. Drew Daniel. SHEEP FARMER: Dr. Mich Martinez. COMPLICATIONS: None. INTRAOPERATIVE FINDINGS: Please see findings section. SPECIMEN: None. POSTOPERATIVE CONDITION: To CV-ICU. INDICATIONS FOR PROCEDURE: This is a 76-year-old gentleman with low-gradient severe aortic stenosis with a calculated aortic valve area of 0.89 with a mean gradient of 18, who previously had an LAD stent and has mild pulmonary hypertension. He had a dobutamine echo, Record Of Operation [address] [place]. [address] NAME: JHON HODGSON : 38 STATUS : ADM IN PAT#: [id number] AGE: 76 ADM/REG DATE : 12/25/16 MR#: [id number] REPORT SERV DATE: 12/25/16 DICTATED BY: JOSE DANIEL LAYTON DATE: 12/25/16 REPORT STATUS : Draft TRANSCRIBED BY: MODL DATE: 12/25/16 which showed that there was severe low-gradient aortic stenosis, which was fixed, and after dobutamine infusion, there was a greater than 20% increase in LVOT. VTI indicating adequate contractile reserve. The patient was seen in the Multidisciplinary Clinic. Risks, benefits, and alternatives were discussed with the patient including but not limited to bleeding, infection, stroke, , heart attack, need for future operations. All questions were answered. His STS risk was felt to be elevated for an open aortic valve replacement, placing him in the intermediate risk category. He was referred for TAVR. FINDINGS AT THE TIME OF OPERATION: Total time of rapid pacing 0 minutes. Actual time of TAVR deployment was at 9:05 a.m. on 12/25/2016. Cardiac output pre-deployment was 4.2, post deployment was 5.4. Valve area pre-deployment was 0.94 sq cm, valve area post-deployment was 5.79 sq cm. Pre- and post-implant aortic systolic and diastolic pressures; pre-blood pressure was 111/60 with a mean of 89 and heart rate of 80, post blood pressure was 132/65, mean of 87 with a heart rate of 76. Pre-implant AV gradient; mean of 17, peak was 18. Post AV gradient; mean of 0, peak was 0. Contrast volume used was 60 mL. Total fluoro time was 22.1 minutes. Estimated blood loss was less than 50 mL. Total mGy used was 1446. AI index was 36. There was mild aortic insufficiency seen on transthoracic echocardiography after valve deployment, and there were pedal pulses bilaterally on transfer to the unit. There was no right femoral artery stenosis after ProGlide deployment. PATHOLOGIC SPECIMENS: None. DETAILS OF PROCEDURE: The patient was brought to the hybrid OR and placed supine on the operating room table. He was prepped and draped in the usual sterile fashion. Using a micropuncture technique, his right femoral artery and his left femoral artery were accessed. Contrast angiography confirmed placement of the catheters. Each of these micropuncture catheters were exchanged for a 6-St [place] introducer sheath. A pigtail catheter and guidewire were advanced in the ascending aorta into the noncoronary sinus to confirm deployment angles using contrast aortography. A J-wire was then placed in the right femoral artery and the 6- [place] sheath was removed. Two ProGlide closure devices were then placed in the right femoral artery. A straight wire was then advanced into the ascending aorta under fluoroscopic guidance. A multipurpose was advanced over the guidewire. A Lunderquist wire was then advanced through the multipurpose into the ascending aorta. Systemic heparinization was achieved, and a 16-St Helenian Cook sheath was placed into the descending thoracic aorta. An AL1 catheter was then advanced over the Lunderquist wire, which was removed. A soft straight wire was then used to cross the valve, and the AL1 catheter was advanced across the valve and exchanged for a pigtail catheter. Simultaneous pressures in the ventricle and the ascending aorta were measured. The Lunderquist wire was then placed in the left ventricle, and the pigtail catheter was removed. The 16-St Helenian sheath was removed, and then, the valve was brought up. Under fluoro, the valve was confirmed to be loaded on the device properly. The InLine sheath was used. The valve and sheath were then placed over the Lunderquist wire into the descending aorta. The valve was crossed, placed across the valve, and positioning was confirmed with fluoro. Angles for deployment of the valve were placed. The contrast aortography was used to confirm positioning of the valve, and the valve was attempted to be deployed using the deployment system. After initial deployment, the valve was felt to be too deep, it was recaptured and repositioned. On the second attempt, the valve was in the appropriate location and was deployed. The valve Record Of [address] [place]. [address] NAME: JHON HODGSON : 38 STATUS : ADM IN PAT#: [id number] AGE: 76 ADM/REG DATE : 12/25/16 MR#: [id number] REPORT SERV DATE: 12/25/16 DICTATED BY: JOSE DANIEL LAYTON DATE: 12/25/16 REPORT STATUS : Draft TRANSCRIBED BY: MODShay DATE: 12/25/16 delivery system was brought out, was removed through the valve, and then pulled into the descending aorta. Contrast aortography did not demonstrate significant aortic insufficiency, and transthoracic echocardiography was then performed by Dr. Martinez and showed mild perivalvular aortic leak. A decision was made not to address this as it was very mild. The valve delivery system was then pulled back into the descending aorta a little bit further. Pigtail was placed across the aortic valve, and left ventricular pressures were obtained and a pullback pressure was obtained after pulling the pigtail back through the aortic valve. The InLine sheath and valve system were removed from the right femoral artery and the ProGlide closure devices deployed and secured. Pigtail catheter and left femoral artery were then brought down to the aortic bifurcation, and contrast aortography was performed with right iliofemoral runoff demonstrating good patency of the right femoral artery with no stenosis. Pedal pulses were present. The pigtail catheter was removed over a J-wire, and ProGlide was placed in the left femoral artery. The guidewire was removed, and upon attempting to push the knot, the ProGlide was cut prior to deployment. Pressure was held and FemoStop was placed on the left femoral artery. The temporary pacemaker was removed from the neck. The [place] was removed. The patient tolerated the procedure well. There were no complications. The patient was transferred to the CV-ICU in stable condition. TRU/URIEL Jose Daniel Layton MD / [id number]
[~2016-12-25 04:49] MED LIST: AMARYL2 PO; ASAB PO; ATV.5 PO; ATV1 PO; BRILINTA90 MG PO; BUSPAR5 PO; CALTRAT600 PO; COREG3 PO; DILTIAZEM 180 MG; FISH OIL1200 MG PO; FISH-EPA1000 MG PO; FLOMAX4 PO; FOLIC PO; GLUCOTRO10 PO; GLUCPH PO; HALF81 PO; IMDUR30 PO; INSNOVN SC; INSNOVR SC; INVOKANA100 MG PO; KLONO1 PO; KLOR-CON M1010 MEQ PO; L20 PO; LIPITOR20 PO; LIPITOR40 PO; LOP25 PO; METAMUCIL CAN7 OZ PO; METFORMIN 500 MG; METPAKSF PO; MICRO-K10 MEQ PO; MTX2.5 PO; NITROSTAT0.4 MG SL; NORV25 PO; NOVOLOG SC; NOVOPEN SC; OS500+D PO; P10 PO; P20 PO; P5 PO; PLAVIX PO; PREDNISONE2.5 MG PO; PRILO PO; PRIN5 PO; REFRESH OPH; SPIRO25 PO; SUPER B COMP PO; TOPXL25 PO; ULTRAM50 PO; VITAMIN B PO; VITAMIN D1000 UNI1 PO; VITAMIN D31000 UNIT PO; ZOCOR40 PO; ZOL100 PO
[2016-12-25 06:38] LABS: TEG - ANGLE 66.5 DEG (53-72); TEG - MAXIMUM AMPLITUDE 62.1 MM (50-70); TEG - RATE 6.5 MIN (5.0-10.0)
[2016-12-25 06:39] LABS: MAX AMP (ADP) 43.6 MM (35-68)
[2016-12-25 13:37] LABS: HEMATOCRIT 37.3 % (40.0-51.0); HEMOGLOBIN 12.5 g/dL (13.6-17.8); PLATELET COUNT 104 10/3/uL (150-400)
[2016-12-25 13:45] LABS: INTERNATIONAL NORMAL RATI 1.4 UNITS (-)
[2016-12-25 13:49] LABS: BUN (BLOOD UREA NITROGEN) 26 MG/DL (6-23); CALCIUM, SERUM 8.4 MG/DL (8.5-10.4); CHLORIDE, SERUM 109 MMOL/L (96-112); CO2 (CARBON DIOXIDE) 25 MMOL/L (24-34); CREATININE 0.94 MG/DL (0.70-1.30); GFR AFRICAN AMERICAN 90 ML/MIN (>=60); GFR NON AFRICAN AMERICAN 77 ML/MIN (>=60); GLUCOSE, SERUM 120 MG/DL (60-99); POTASSIUM, SERUM 4.4 MMOL/L (3.5-5.3); SODIUM, SERUM 142 MMOL/L (135-148)
[2016-12-25 14:02] LABS: PARTIAL THROMBO TIME > 150.0 SEC (22.5-37.2); PROTIME (NOT ORD) 16.9 SEC (12.0-14.5)
[2016-12-25 17:49] LABS: HEMATOCRIT 37.5 % (40.0-51.0); HEMOGLOBIN 12.4 g/dL (13.6-17.8)
[2016-12-25 18:01] LABS: BUN (BLOOD UREA NITROGEN) 23 MG/DL (6-23); CALCIUM, SERUM 8.5 MG/DL (8.5-10.4); CHLORIDE, SERUM 109 MMOL/L (96-112); CO2 (CARBON DIOXIDE) 23 MMOL/L (24-34); CREATININE 0.92 MG/DL (0.70-1.30); GFR AFRICAN AMERICAN 92 ML/MIN (>=60); GFR NON AFRICAN AMERICAN 79 ML/MIN (>=60); GLUCOSE, SERUM 94 MG/DL (60-99); POTASSIUM, SERUM 3.9 MMOL/L (3.5-5.3); SODIUM, SERUM 137 MMOL/L (135-148)
[2016-12-26 00:54] LABS: HEMOGLOBIN 12.3 g/dL (13.6-17.8)
[2016-12-26 00:57] LABS: HEMATOCRIT 35.6 % (40.0-51.0)
[2016-12-26 01:06] LABS: CALCIUM, SERUM 8.5 MG/DL (8.5-10.4); CHLORIDE, SERUM 110 MMOL/L (96-112); CO2 (CARBON DIOXIDE) 24 MMOL/L (24-34); GFR AFRICAN AMERICAN 94 ML/MIN (>=60); GFR NON AFRICAN AMERICAN 82 ML/MIN (>=60); POTASSIUM, SERUM 4.5 MMOL/L (3.5-5.3); SODIUM, SERUM 142 MMOL/L (135-148)
[2016-12-26 01:07] LABS: BUN (BLOOD UREA NITROGEN) 23 MG/DL (6-23); GLUCOSE, SERUM 91 MG/DL (60-99)
[2016-12-26 03:32] LABS: BASOPHILS 0.1 %; BASOPHILS ABSOLUTE 0.01 10/3/uL (0.0-0.16); EOSINOPHILS 0.4 %; EOSINOPHILS ABSOLUTE 0.03 10/3/uL (0.0-0.53); HEMATOCRIT 37.2 % (40.0-51.0); HEMOGLOBIN 12.6 g/dL (13.6-17.8); LYMPHOCYTES 15.3 %; LYMPHOCYTES ABSOLUTE 1.21 10/3/uL (0.67-4.30); MEAN CORPUS HGB CONC 33.9 g/dL (32.0-36.0); MEAN CORPUSCULAR HEMOGLOB 29.4 pg (26.0-34.0); MEAN CORPUSCULAR VOLUME 86.9 fL (80-100); MEAN PLATELET VOLUME 11.2 fL (9.2-13.0); MONOCYTES 9.5 %; MONOCYTES ABSOLUTE 0.75 10/3/uL (0.21-1.20); NEUTROPHILS 74.7 %; NEUTROPHILS ABSOLUTE 5.91 10/3/uL (2.02-8.40); PLATELET COUNT 94 10/3/uL (150-400); RBC DISTRIBUTION WIDTH 15.6 % (12.0-16.0); RED CELL COUNT 4.28 10/6/uL (4.7-6.1); WHITE BLOOD CELLS 7.9 10/3/uL (4.5-10.5)
[2016-12-26 03:34] LABS: MANUAL DIFF NO %
[2016-12-26 03:47] LABS: BUN (BLOOD UREA NITROGEN) 22 MG/DL (6-23); CALCIUM, SERUM 8.5 MG/DL (8.5-10.4); CHLORIDE, SERUM 109 MMOL/L (96-112); CO2 (CARBON DIOXIDE) 22 MMOL/L (24-34); CREATININE 1.02 MG/DL (0.70-1.30); GFR AFRICAN AMERICAN 81 ML/MIN (>=60); GFR NON AFRICAN AMERICAN 70 ML/MIN (>=60); SODIUM, SERUM 141 MMOL/L (135-148)
[2016-12-26 03:48] LABS: GLUCOSE, SERUM 118 MG/DL (60-99); POTASSIUM, SERUM 4.8 MMOL/L (3.5-5.3)
[2016-12-27 03:43] LABS: BASOPHILS 0.2 %; BASOPHILS ABSOLUTE 0.02 10/3/uL (0.0-0.16); EOSINOPHILS 1.7 %; EOSINOPHILS ABSOLUTE 0.16 10/3/uL (0.0-0.53); HEMATOCRIT 40.3 % (40.0-51.0); HEMOGLOBIN 13.8 g/dL (13.6-17.8); IMMATURE GRANULOCYTES 0.2 %; IMMATURE GRANULOCYTES ABSOLUTE 0.02 10/3/uL (0.0-0.11); LYMPHOCYTES 18.4 %; LYMPHOCYTES ABSOLUTE 1.78 10/3/uL (0.67-4.30); MEAN CORPUS HGB CONC 34.2 g/dL (32.0-36.0); MEAN CORPUSCULAR HEMOGLOB 29.7 pg (26.0-34.0); MEAN CORPUSCULAR VOLUME 86.7 fL (80-100); MONOCYTES 9.8 %; MONOCYTES ABSOLUTE 0.95 10/3/uL (0.21-1.20); NEUTROPHILS 69.7 %; NEUTROPHILS ABSOLUTE 6.75 10/3/uL (2.02-8.40); PLATELET COUNT 98 10/3/uL (150-400); RBC DISTRIBUTION WIDTH 15.4 % (12.0-16.0); RED CELL COUNT 4.65 10/6/uL (4.7-6.1); WHITE BLOOD CELLS 9.7 10/3/uL (4.5-10.5)
[2016-12-27 03:45] LABS: MANUAL DIFF NO %
[2016-12-27 04:25] LABS: CALCIUM, SERUM 8.9 MG/DL (8.5-10.4); CHLORIDE, SERUM 103 MMOL/L (96-112); CREATININE 1.43 MG/DL (0.70-1.30); GFR AFRICAN AMERICAN 54 ML/MIN (>=60); GFR NON AFRICAN AMERICAN 47 ML/MIN (>=60); POTASSIUM, SERUM 4.2 MMOL/L (3.5-5.3); SODIUM, SERUM 139 MMOL/L (135-148)
[2016-12-27 04:27] LABS: BUN (BLOOD UREA NITROGEN) 31 MG/DL (6-23); CO2 (CARBON DIOXIDE) 27 MMOL/L (24-34); GLUCOSE, SERUM 197 MG/DL (60-99)
[2016-12-27 13:27] LABS: CARBOXYHEMOGLOBIN 0.6 % (0-3); DEVICE NC; HCO3 (ACTUAL BICARBONATE) 23.4 MEQ/L (23-27); HEMOBLOGIN CONTENT 13.4 G/DL (14-18); INSTRUMENT SERIAL # 11843; METHEMOGLOBIN 0.4 % (0-3); O2 CONTENT 17.9 VOL% (18-24); OPERATOR ID 32214; PCO2 (CO2 TENSION) 28 MMHG (35-45); PO2 (O2 TENSION) 77 MMHG (79-93); SAMPLE Arterial; pH 7.54 (7.37-7.43)
[2016-12-27 13:28] LABS: ALLENS TEST Pos
[2016-12-27 20:56] LABS: INTERNATIONAL NORMAL RATI 1.2 UNITS (-); PARTIAL THROMBO TIME 35.2 SEC (22.5-37.2); PROTIME (NOT ORD) 14.6 SEC (12.0-14.5)
[2016-12-28 04:24] LABS: BASOPHILS 0.2 %; BASOPHILS ABSOLUTE 0.01 10/3/uL (0.0-0.16); EOSINOPHILS 1.3 %; EOSINOPHILS ABSOLUTE 0.08 10/3/uL (0.0-0.53); HEMATOCRIT 36.9 % (40.0-51.0); HEMOGLOBIN 12.5 g/dL (13.6-17.8); IMMATURE GRANULOCYTES 0.2 %; IMMATURE GRANULOCYTES ABSOLUTE 0.01 10/3/uL (0.0-0.11); LYMPHOCYTES ABSOLUTE 1.08 10/3/uL (0.67-4.30); MEAN CORPUS HGB CONC 33.9 g/dL (32.0-36.0); MEAN CORPUSCULAR HEMOGLOB 29.1 pg (26.0-34.0); MEAN CORPUSCULAR VOLUME 85.8 fL (80-100); MEAN PLATELET VOLUME 11.2 fL (9.2-13.0); MONOCYTES 6.6 %; MONOCYTES ABSOLUTE 0.42 10/3/uL (0.21-1.20); NEUTROPHILS 74.7 %; NEUTROPHILS ABSOLUTE 4.74 10/3/uL (2.02-8.40); PLATELET COUNT 79 10/3/uL (150-400); RBC DISTRIBUTION WIDTH 15.4 % (12.0-16.0); WHITE BLOOD CELLS 6.3 10/3/uL (4.5-10.5)
[2016-12-28 04:36] LABS: BUN (BLOOD UREA NITROGEN) 29 MG/DL (6-23); CALCIUM, SERUM 8.7 MG/DL (8.5-10.4); CHLORIDE, SERUM 104 MMOL/L (96-112); CO2 (CARBON DIOXIDE) 27 MMOL/L (24-34); GFR AFRICAN AMERICAN 67 ML/MIN (>=60); GFR NON AFRICAN AMERICAN 58 ML/MIN (>=60); SODIUM, SERUM 139 MMOL/L (135-148)
[2016-12-28 04:37] LABS: GLUCOSE, SERUM 123 MG/DL (60-99)
[2016-12-28 04:39] LABS: A/G RATIO 1.1 (0.7-1.9); ALBUMIN 3.1 G/DL (3.5-5.0); ALKALINE PHOSPHATASE 56 U/L (45-117); BUN (BLOOD UREA NITROGEN) 29 MG/DL (6-23); CALCIUM, SERUM 8.6 MG/DL (8.5-10.4); CHLORIDE, SERUM 105 MMOL/L (96-112); CO2 (CARBON DIOXIDE) 26 MMOL/L (24-34); CREATININE 1.14 MG/DL (0.70-1.30); GFR AFRICAN AMERICAN 71 ML/MIN (>=60); GFR NON AFRICAN AMERICAN 61 ML/MIN (>=60); GLOBULIN 2.8 G/DL (2.5-4.1); GLUCOSE, SERUM 118 MG/DL (60-99); PHOSPHORUS, SERUM 3.2 MG/DL (2.5-4.5); SGOT(AST) 66 U/L (5-40); SGPT(ALT) 22 U/L (5-65); SODIUM, SERUM 141 MMOL/L (135-148); TOTAL BILIRUBIN 2.6 MG/DL (0-1.2); TOTAL PROTEIN 5.9 G/DL (6.0-8.5)
[2016-12-28 04:42] LABS: MANUAL DIFF NO %
[2016-12-28 05:18] LABS: MAX AMP (ADP) 44.6 MM (35-68); TEG - ANGLE 68.6 DEG (53-72); TEG - MAXIMUM AMPLITUDE 62.4 MM (50-70); TEG - RATE 5.4 MIN (5.0-10.0); TEG PLAVIX/EFFIENT/TICLID(ADP) 36.5 % INHIB (< 40)
[2016-12-28 05:27] LABS: INTERNATIONAL NORMAL RATI 1.3 UNITS (-); PROTIME (NOT ORD) 15.6 SEC (12.0-14.5)
[2016-12-28 06:45] LABS: PLATELET ESTIMATE DEC (ADEQUATE); RBC MORPHOLOGY NORM (NORMAL)
[2016-12-28 16:07] LABS: BE (BASE EXCESS) -2.6 MEQ/L (0 +/- 2.5); CARBOXYHEMOGLOBIN 0.3 % (0-3); HCO3 (ACTUAL BICARBONATE) 22.2 MEQ/L (23-27); HEMOBLOGIN CONTENT 10.9 G/DL (14-18); INSTRUMENT SERIAL # 11843; METHEMOGLOBIN 0.6 % (0-3); MODE SIMV; O2 CONTENT 15.1 VOL% (18-24); OPERATOR ID 13715; PCO2 (CO2 TENSION) 39 MMHG (35-45); PO2 (O2 TENSION) 137 MMHG (79-93); SAMPLE Arterial; TIDAL VOLUME 700 ML; pH 7.38 (7.37-7.43)
[2016-12-28 16:08] LABS: TEG - MAXIMUM AMPLITUDE 52.3 MM (50-70)
[2016-12-28 16:32] LABS: BUN (BLOOD UREA NITROGEN) 28 MG/DL (6-23); CALCIUM, SERUM 8.5 MG/DL (8.5-10.4); CHLORIDE, SERUM 103 MMOL/L (96-112); CO2 (CARBON DIOXIDE) 24 MMOL/L (24-34); GFR AFRICAN AMERICAN 61 ML/MIN (>=60); GFR NON AFRICAN AMERICAN 52 ML/MIN (>=60); GLUCOSE, SERUM 175 MG/DL (60-99); POTASSIUM, SERUM 3.9 MMOL/L (3.5-5.3); SODIUM, SERUM 138 MMOL/L (135-148)
[2016-12-28 16:33] LABS: INTERNATIONAL NORMAL RATI 1.5 UNITS (-); PARTIAL THROMBO TIME 35.9 SEC (22.5-37.2); PROTIME (NOT ORD) 17.8 SEC (12.0-14.5)
[2016-12-28 16:34] LABS: HEMATOCRIT 28.7 % (40.0-51.0); HEMOGLOBIN 9.7 g/dL (13.6-17.8); PLATELET COUNT 85 10/3/uL (150-400)
[2016-12-28 19:18] LABS: BE (BASE EXCESS) -1.5 MEQ/L (0 +/- 2.5); CARBOXYHEMOGLOBIN 0.3 % (0-3); DEVICE NC; HCO3 (ACTUAL BICARBONATE) 23.1 MEQ/L (23-27); HEMOBLOGIN CONTENT 10.7 G/DL (14-18); INSTRUMENT SERIAL # 11843; METHEMOGLOBIN 0.6 % (0-3); O2 CONTENT 14.2 VOL% (18-24); OPERATOR ID 32193; PCO2 (CO2 TENSION) 38 MMHG (35-45); PO2 (O2 TENSION) 82 MMHG (79-93); SAMPLE Arterial
[2016-12-28 22:55] LABS: TEG - ANGLE 53.5 DEG (53-72); TEG - RATE 9.5 MIN (5.0-10.0)
[2016-12-28 22:56] LABS: TEG - COAGULATION INDEX -4.6 (-3 TO 3)
[2016-12-28 23:01] LABS: HEMOGLOBIN 9.3 g/dL (13.6-17.8)
[2016-12-28 23:14] LABS: POTASSIUM, SERUM 3.7 MMOL/L (3.5-5.3)
[2016-12-29 04:03] LABS: BASOPHILS 0 %; EOSINOPHILS 0 %; HEMATOCRIT 25.6 % (40.0-51.0); HEMOGLOBIN 8.9 g/dL (13.6-17.8); IMMATURE GRANULOCYTES 0.1 %; IMMATURE GRANULOCYTES ABSOLUTE 0.01 10/3/uL (0.0-0.11); LYMPHOCYTES 3.9 %; MEAN CORPUS HGB CONC 34.8 g/dL (32.0-36.0); MEAN CORPUSCULAR HEMOGLOB 29.9 pg (26.0-34.0); MEAN CORPUSCULAR VOLUME 85.9 fL (80-100); MEAN PLATELET VOLUME 10.1 fL (9.2-13.0); MONOCYTES 4.6 %; MONOCYTES ABSOLUTE 0.36 10/3/uL (0.21-1.20); NEUTROPHILS 91.4 %; NEUTROPHILS ABSOLUTE 7.08 10/3/uL (2.02-8.40); RBC DISTRIBUTION WIDTH 15.2 % (12.0-16.0); WHITE BLOOD CELLS 7.8 10/3/uL (4.5-10.5)
[2016-12-29 04:13] LABS: PLATELET COUNT 114 10/3/uL (150-400); RED CELL COUNT 2.98 10/6/uL (4.7-6.1)
[2016-12-29 04:15] LABS: BUN (BLOOD UREA NITROGEN) 29 MG/DL (6-23); CHLORIDE, SERUM 111 MMOL/L (96-112); CO2 (CARBON DIOXIDE) 24 MMOL/L (24-34); CREATININE 1.11 MG/DL (0.70-1.30); GFR AFRICAN AMERICAN 73 ML/MIN (>=60); GFR NON AFRICAN AMERICAN 63 ML/MIN (>=60); POTASSIUM, SERUM 4.4 MMOL/L (3.5-5.3); SODIUM, SERUM 143 MMOL/L (135-148)
[2016-12-29 04:16] LABS: GLUCOSE, SERUM 102 MG/DL (60-99)
[2016-12-29 04:17] LABS: INTERNATIONAL NORMAL RATI 1.3 UNITS (-); PROTIME (NOT ORD) 15.8 SEC (12.0-14.5)
[2016-12-29 15:47] LABS: HEMOGLOBIN 10.4 g/dL (13.6-17.8)
[2016-12-29 15:59] LABS: POTASSIUM, SERUM 4.1 MMOL/L (3.5-5.3)
[2016-12-29 16:41] LABS: HEMATOCRIT 29.3 % (40.0-51.0)
[2016-12-30 03:25] LABS: BASOPHILS 0 %; EOSINOPHILS 0 %; HEMATOCRIT 29.3 % (40.0-51.0); IMMATURE GRANULOCYTES 0.1 %; IMMATURE GRANULOCYTES ABSOLUTE 0.01 10/3/uL (0.0-0.11); LYMPHOCYTES 6.8 %; LYMPHOCYTES ABSOLUTE 0.57 10/3/uL (0.67-4.30); MEAN CORPUS HGB CONC 34.1 g/dL (32.0-36.0); MEAN CORPUSCULAR HEMOGLOB 29.7 pg (26.0-34.0); MEAN CORPUSCULAR VOLUME 86.9 fL (80-100); MEAN PLATELET VOLUME 10.3 fL (9.2-13.0); MONOCYTES 10.4 %; MONOCYTES ABSOLUTE 0.88 10/3/uL (0.21-1.20); NEUTROPHILS 82.7 %; NEUTROPHILS ABSOLUTE 6.97 10/3/uL (2.02-8.40); PLATELET COUNT 107 10/3/uL (150-400); RBC DISTRIBUTION WIDTH 15.7 % (12.0-16.0); RED CELL COUNT 3.37 10/6/uL (4.7-6.1); WHITE BLOOD CELLS 8.4 10/3/uL (4.5-10.5)
[2016-12-30 03:27] LABS: MANUAL DIFF NO %
[2016-12-30 03:38] LABS: CALCIUM, SERUM 8.5 MG/DL (8.5-10.4); CHLORIDE, SERUM 108 MMOL/L (96-112); CO2 (CARBON DIOXIDE) 25 MMOL/L (24-34); CREATININE 1.06 MG/DL (0.70-1.30); GFR AFRICAN AMERICAN 78 ML/MIN (>=60); GFR NON AFRICAN AMERICAN 67 ML/MIN (>=60); POTASSIUM, SERUM 4.6 MMOL/L (3.5-5.3); SODIUM, SERUM 139 MMOL/L (135-148)
[2016-12-30 03:39] LABS: BUN (BLOOD UREA NITROGEN) 37 MG/DL (6-23); GLUCOSE, SERUM 177 MG/DL (60-99)
[2016-12-31 03:39] LABS: BASOPHILS 0 %; EOSINOPHILS 0.3 %; EOSINOPHILS ABSOLUTE 0.03 10/3/uL (0.0-0.53); HEMATOCRIT 28.5 % (40.0-51.0); HEMOGLOBIN 9.9 g/dL (13.6-17.8); IMMATURE GRANULOCYTES 0.5 %; IMMATURE GRANULOCYTES ABSOLUTE 0.05 10/3/uL (0.0-0.11); LYMPHOCYTES 9.9 %; LYMPHOCYTES ABSOLUTE 1.01 10/3/uL (0.67-4.30); MANUAL DIFF NO %; MEAN CORPUS HGB CONC 34.7 g/dL (32.0-36.0); MEAN CORPUSCULAR HEMOGLOB 30.1 pg (26.0-34.0); MEAN CORPUSCULAR VOLUME 86.6 fL (80-100); MEAN PLATELET VOLUME 10.8 fL (9.2-13.0); MONOCYTES 9.5 %; MONOCYTES ABSOLUTE 0.97 10/3/uL (0.21-1.20); NEUTROPHILS 79.8 %; NEUTROPHILS ABSOLUTE 8.16 10/3/uL (2.02-8.40); PLATELET COUNT 119 10/3/uL (150-400); RBC DISTRIBUTION WIDTH 15.8 % (12.0-16.0); RED CELL COUNT 3.29 10/6/uL (4.7-6.1); WHITE BLOOD CELLS 10.2 10/3/uL (4.5-10.5)
[2016-12-31 03:44] LABS: INTERNATIONAL NORMAL RATI 1.2 UNITS (-); PROTIME (NOT ORD) 15.2 SEC (12.0-14.5)
[2016-12-31 03:51] LABS: BUN (BLOOD UREA NITROGEN) 43 MG/DL (6-23); CALCIUM, SERUM 8.7 MG/DL (8.5-10.4); CHLORIDE, SERUM 107 MMOL/L (96-112); CO2 (CARBON DIOXIDE) 24 MMOL/L (24-34); CREATININE 1.01 MG/DL (0.70-1.30); GFR AFRICAN AMERICAN 82 ML/MIN (>=60); GFR NON AFRICAN AMERICAN 71 ML/MIN (>=60); GLUCOSE, SERUM 84 MG/DL (60-99); POTASSIUM, SERUM 3.8 MMOL/L (3.5-5.3); SODIUM, SERUM 138 MMOL/L (135-148)
[2017-01-01 03:53] LABS: BASOPHILS 0.1 %; BASOPHILS ABSOLUTE 0.01 10/3/uL (0.0-0.16); EOSINOPHILS 1.7 %; EOSINOPHILS ABSOLUTE 0.17 10/3/uL (0.0-0.53); HEMATOCRIT 29.7 % (40.0-51.0); HEMOGLOBIN 10.2 g/dL (13.6-17.8); IMMATURE GRANULOCYTES 0.3 %; IMMATURE GRANULOCYTES ABSOLUTE 0.03 10/3/uL (0.0-0.11); LYMPHOCYTES ABSOLUTE 1.48 10/3/uL (0.67-4.30); MEAN CORPUS HGB CONC 34.3 g/dL (32.0-36.0); MEAN CORPUSCULAR VOLUME 87.4 fL (80-100); MONOCYTES 10.4 %; MONOCYTES ABSOLUTE 1.03 10/3/uL (0.21-1.20); NEUTROPHILS 72.5 %; NEUTROPHILS ABSOLUTE 7.15 10/3/uL (2.02-8.40); PLATELET COUNT 123 10/3/uL (150-400); RBC DISTRIBUTION WIDTH 15.7 % (12.0-16.0); WHITE BLOOD CELLS 9.9 10/3/uL (4.5-10.5)
[2017-01-01 03:54] LABS: MANUAL DIFF NO %
[2017-01-01 04:10] LABS: BUN (BLOOD UREA NITROGEN) 38 MG/DL (6-23); CALCIUM, SERUM 8.6 MG/DL (8.5-10.4); CHLORIDE, SERUM 103 MMOL/L (96-112); CO2 (CARBON DIOXIDE) 26 MMOL/L (24-34); GFR AFRICAN AMERICAN 83 ML/MIN (>=60); GFR NON AFRICAN AMERICAN 72 ML/MIN (>=60); GLUCOSE, SERUM 53 MG/DL (60-99); POTASSIUM, SERUM 3.9 MMOL/L (3.5-5.3); SODIUM, SERUM 137 MMOL/L (135-148)
[2017-01-01 09:19] LABS: INTERNATIONAL NORMAL RATI 1.3 UNITS (-); PROTIME (NOT ORD) 15.8 SEC (12.0-14.5)
[2017-01-02 05:21] LABS: BASOPHILS 0.3 %; BASOPHILS ABSOLUTE 0.02 10/3/uL (0.0-0.16); EOSINOPHILS 4.7 %; EOSINOPHILS ABSOLUTE 0.37 10/3/uL (0.0-0.53); HEMATOCRIT 30.2 % (40.0-51.0); HEMOGLOBIN 10.5 g/dL (13.6-17.8); IMMATURE GRANULOCYTES 0.1 %; IMMATURE GRANULOCYTES ABSOLUTE 0.01 10/3/uL (0.0-0.11); LYMPHOCYTES ABSOLUTE 1.26 10/3/uL (0.67-4.30); MEAN CORPUS HGB CONC 34.8 g/dL (32.0-36.0); MEAN CORPUSCULAR HEMOGLOB 30.1 pg (26.0-34.0); MEAN CORPUSCULAR VOLUME 86.5 fL (80-100); MONOCYTES 10.9 %; MONOCYTES ABSOLUTE 0.86 10/3/uL (0.21-1.20); NEUTROPHILS ABSOLUTE 5.36 10/3/uL (2.02-8.40); PLATELET COUNT 135 10/3/uL (150-400); RBC DISTRIBUTION WIDTH 15.5 % (12.0-16.0); RED CELL COUNT 3.49 10/6/uL (4.7-6.1); WHITE BLOOD CELLS 7.9 10/3/uL (4.5-10.5)
[2017-01-02 05:23] LABS: MANUAL DIFF NO %
[2017-01-02 05:37] LABS: BUN (BLOOD UREA NITROGEN) 30 MG/DL (6-23); CALCIUM, SERUM 8.7 MG/DL (8.5-10.4); CHLORIDE, SERUM 100 MMOL/L (96-112); CO2 (CARBON DIOXIDE) 25 MMOL/L (24-34); CREATININE 1.07 MG/DL (0.70-1.30); GFR AFRICAN AMERICAN 77 ML/MIN (>=60); GFR NON AFRICAN AMERICAN 66 ML/MIN (>=60); GLUCOSE, SERUM 115 MG/DL (60-99); POTASSIUM, SERUM 4.1 MMOL/L (3.5-5.3); SODIUM, SERUM 134 MMOL/L (135-148)
[2017-01-02 05:40] LABS: INTERNATIONAL NORMAL RATI 1.6 UNITS (-)
[2017-01-02 05:45] LABS: PROTIME (NOT ORD) 18.9 SEC (12.0-14.5)
[2017-01-02 09:08] LABS: INTERNATIONAL NORMAL RATI 1.7 UNITS (-); PROTIME (NOT ORD) 19.4 SEC (12.0-14.5)
[2017-01-03 04:32] LABS: BASOPHILS 0.3 %; BASOPHILS ABSOLUTE 0.02 10/3/uL (0.0-0.16); EOSINOPHILS 5.2 %; EOSINOPHILS ABSOLUTE 0.37 10/3/uL (0.0-0.53); HEMATOCRIT 30.2 % (40.0-51.0); HEMOGLOBIN 10.4 g/dL (13.6-17.8); IMMATURE GRANULOCYTES 0.1 %; IMMATURE GRANULOCYTES ABSOLUTE 0.01 10/3/uL (0.0-0.11); LYMPHOCYTES 18.5 %; LYMPHOCYTES ABSOLUTE 1.31 10/3/uL (0.67-4.30); MEAN CORPUS HGB CONC 34.4 g/dL (32.0-36.0); MEAN CORPUSCULAR HEMOGLOB 29.8 pg (26.0-34.0); MEAN CORPUSCULAR VOLUME 86.5 fL (80-100); MEAN PLATELET VOLUME 11.1 fL (9.2-13.0); MONOCYTES 10.7 %; MONOCYTES ABSOLUTE 0.76 10/3/uL (0.21-1.20); NEUTROPHILS 65.2 %; NEUTROPHILS ABSOLUTE 4.61 10/3/uL (2.02-8.40); PLATELET COUNT 154 10/3/uL (150-400); RBC DISTRIBUTION WIDTH 15.3 % (12.0-16.0); RED CELL COUNT 3.49 10/6/uL (4.7-6.1); WHITE BLOOD CELLS 7.1 10/3/uL (4.5-10.5)
[2017-01-03 04:34] LABS: MANUAL DIFF NO %
[2017-01-03 04:44] LABS: INTERNATIONAL NORMAL RATI 1.9 UNITS (-); PROTIME (NOT ORD) 21.4 SEC (12.0-14.5)
[2017-01-03 04:52] LABS: BUN (BLOOD UREA NITROGEN) 30 MG/DL (6-23); CALCIUM, SERUM 8.7 MG/DL (8.5-10.4); CHLORIDE, SERUM 99 MMOL/L (96-112); CO2 (CARBON DIOXIDE) 28 MMOL/L (24-34); CREATININE 1.25 MG/DL (0.70-1.30); GFR AFRICAN AMERICAN 64 ML/MIN (>=60); GFR NON AFRICAN AMERICAN 55 ML/MIN (>=60); GLUCOSE, SERUM 111 MG/DL (60-99); POTASSIUM, SERUM 3.9 MMOL/L (3.5-5.3); SODIUM, SERUM 135 MMOL/L (135-148)
[2017-01-04 04:50] LABS: BASOPHILS 0.1 %; BASOPHILS ABSOLUTE 0.01 10/3/uL (0.0-0.16); EOSINOPHILS 4.8 %; EOSINOPHILS ABSOLUTE 0.36 10/3/uL (0.0-0.53); HEMATOCRIT 30.9 % (40.0-51.0); HEMOGLOBIN 10.4 g/dL (13.6-17.8); IMMATURE GRANULOCYTES 0.3 %; IMMATURE GRANULOCYTES ABSOLUTE 0.02 10/3/uL (0.0-0.11); LYMPHOCYTES 17.5 %; LYMPHOCYTES ABSOLUTE 1.32 10/3/uL (0.67-4.30); MEAN CORPUS HGB CONC 33.7 g/dL (32.0-36.0); MEAN CORPUSCULAR HEMOGLOB 29.4 pg (26.0-34.0); MEAN CORPUSCULAR VOLUME 87.3 fL (80-100); MEAN PLATELET VOLUME 10.5 fL (9.2-13.0); MONOCYTES 10.2 %; MONOCYTES ABSOLUTE 0.77 10/3/uL (0.21-1.20); NEUTROPHILS 67.1 %; NEUTROPHILS ABSOLUTE 5.06 10/3/uL (2.02-8.40); PLATELET COUNT 163 10/3/uL (150-400); RBC DISTRIBUTION WIDTH 15.4 % (12.0-16.0); RED CELL COUNT 3.54 10/6/uL (4.7-6.1); WHITE BLOOD CELLS 7.5 10/3/uL (4.5-10.5)
[2017-01-04 04:51] LABS: MANUAL DIFF NO %
[2017-01-04 04:53] LABS: INTERNATIONAL NORMAL RATI 2.1 UNITS (-); PROTIME (NOT ORD) 23.1 SEC (12.0-14.5)
[2017-01-04 04:58] LABS: BUN (BLOOD UREA NITROGEN) 30 MG/DL (6-23); CALCIUM, SERUM 8.8 MG/DL (8.5-10.4); CHLORIDE, SERUM 99 MMOL/L (96-112); CO2 (CARBON DIOXIDE) 30 MMOL/L (24-34); CREATININE 1.29 MG/DL (0.70-1.30); GFR AFRICAN AMERICAN 61 ML/MIN (>=60); GFR NON AFRICAN AMERICAN 53 ML/MIN (>=60); POTASSIUM, SERUM 3.9 MMOL/L (3.5-5.3); SODIUM, SERUM 135 MMOL/L (135-148)
[2017-01-04 04:59] LABS: GLUCOSE, SERUM 77 MG/DL (60-99)
[2017-01-04] MEDS ORDERED: OXYCOD PO (16:16)
[2017-01-04] MEDS ORDERED: NORV5 PO (16:16)
[2017-01-04] MEDS ORDERED: COREG3 PO (16:16)
[2017-01-04] MEDS ORDERED: COUMADIN3 MG PO (16:17)
[2017-01-04] MEDS ORDERED: PRIN2.5 PO (16:17)
[2017-02-02] MEDS ORDERED: CALTRAT600 PO (02:31)
[2017-02-02] MEDS ORDERED: INSNOVN SC (02:36)
[2017-02-02] MEDS ORDERED: REQUIP1 PO (02:45)
[2017-02-02] MEDS ORDERED: VITAMIN D31000 UNIT PO (02:46)
== END 2017-01-04 17:31 | disposition home or self-care (01) | DRG 219 ==
LOC: SDC/OF 04:49 → CVICU 09:24 → 5NO 01-01 07:27
PROVIDERS: Internal Medicine Cardiovascular Disease; Nurse Practitioner Adult Health; Thoracic Surgery (Cardiothoracic Vascular Surgery)
PROC: B246YZZ Ultrasonography of Right and Left Heart using Other Contrast (ICD-10-PCS; 2016-12-25)
PROC: 02RF38Z Replacement of Aortic Valve with Zooplastic Tissue, Percutaneous Approach (ICD-10-PCS; principal; 2016-12-25 07:00)
PROC: 02P Heart and Great Vessels, Removal (ICD-10-PCS; 2016-12-28)
PROC: 06BP4ZZ Excision of Right Saphenous Vein, Percutaneous Endoscopic Approach (ICD-10-PCS; 2016-12-28)
PROC: B246ZZ4 Ultrasonography of Right and Left Heart, Transesophageal (ICD-10-PCS; 2016-12-28)
PROC: 5A1221Z Performance of Cardiac Output, Continuous (ICD-10-PCS; 2016-12-28)
PROC: B246ZZ4 Ultrasonography of Right and Left Heart, Transesophageal (ICD-10-PCS; 2016-12-28)
PROC: 02RF08Z Replacement of Aortic Valve with Zooplastic Tissue, Open Approach (ICD-10-PCS; 2016-12-28 10:45)
PROC: 021209W Bypass Coronary Artery, Three Arteries from Aorta with Autologous Venous Tissue, Open Approach (ICD-10-PCS; 2016-12-28 10:45)
DX: I35.0 Nonrheumatic aortic (valve) stenosis (principal); I50.23 Acute on chronic systolic (congestive) heart failure; N17.9 Acute kidney failure, unspecified; I13.0 Hypertensive heart and chronic kidney disease with heart failure and stage 1 through stage 4 chronic kidney disease, or unspecified chronic kidney disease; T82.02XA Displacement of heart valve prosthesis, initial encounter; D62 Acute posthemorrhagic anemia; E11.22 Type 2 diabetes mellitus with diabetic chronic kidney disease; Z00.6 Encounter for examination for normal comparison and control in clinical research program; I25.10 Atherosclerotic heart disease of native coronary artery without angina pectoris; Z95.5 Presence of coronary angioplasty implant and graft; E78.5 Hyperlipidemia, unspecified; K21.9 Gastro-esophageal reflux disease without esophagitis; N18.2 Chronic kidney disease, stage 2 (mild); I34.0 Nonrheumatic mitral (valve) insufficiency; Z79.02 Long term (current) use of antithrombotics/antiplatelets; M31.6 Other giant cell arteritis; I65.23 Occlusion and stenosis of bilateral carotid arteries; Z79.4 Long term (current) use of insulin; Y83.8 Other surgical procedures as the cause of abnormal reaction of the patient, or of later complication, without mention of misadventure at the time of the procedure; G47.33 Obstructive sleep apnea (adult) (pediatric)
CPT/HCPCS: 36415; 36600; 71010; 71020; 80048; 80053; 80069; 81001; 82330; 82565; 82803; 82805; 82947; 82962; 83036; 83735; 83880; 84132; 84295; 85014; 85018; 85025; 85049; 85347; 85384; 85390; 85576; 85576-59; 85610; 85730; 86850; 86900; 86901; 86920; 87641; 88305; 88311; 93005; 93306; 93312; 93320; 93325; 94002; 94640; 94660; 94770; 97110-GO; 97161-GP; 97166-GO; 97535-GO; A9270-GY; C1713; C1769; C1887; C1894; G8978-CJ-GP; G8979-CJ-GP; G8980-CJ-GP; J0690; J1644; J1940; J2150; J2250; J2260; J2370; J2405; J2440; J2597; J2720; J2795; J2930; J3010; J3475; J3480; P9012; P9035; P9045; P9047; P9059